=== PATIENT | female | born 1950 | race Hispanic/Latino ===

== ENCOUNTER 2017-04-20 14:07 | Emergency (ER) | payer MEDICARE ==
[2017-04-20 14:07] VITALS: BMI 28.5
[2017-04-20 14:20] VITALS: BP 93/60; PULSE 84; RESP 18; TEMP 98.5; O2SAT 99
--- NOTE | 2017-04-20 15:05 | ED PDOC ---
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 She denies dysuria, hematuria, urgency, pollakiuria, fever, cough, SOB, chest pain, palpitation. PMD: Dr Escalante Health Director: Dr Karen Moreira <Lazarus Salcedo - Last Filed: 04/20/17 18:49> <Eddi Rowe - Last Filed: 04/20/17 19:01> Time Seen by Provider: 04/20/17 14:35 Chief Complaint (Nursing): Female Genitourinary Supervising Attending Note - Supervising Attending Note The Documented history was done by the: Physician [employer] Consultant The documented physical exam was done by the: Physician [employer] Consultant The documented procedures were done by the: Physician [employer] Consultant - Attestation: I have personally seen and examined this patient.: Yes I have fully participated in the care of the patient.: Yes I have reviewed all pertinent clinical information, including history, physical exam and plan: Yes - Notes: Notes:: L flank pain <Eddi Rowe - Last Filed: 04/20/17 19:01> Past Medical History Reviewed: Nursing Documentation, Vital Signs Vital Signs: Last Vital Signs Temp 98.5 F 04/20/17 14:15 Pulse 84 04/20/17 14:15 Resp 18 04/20/17 14:15 BP 93/60 L 04/20/17 14:15 Pulse Ox 99 04/20/17 14:15 - Medical History PMH: Anxiety, Arthritis, Asthma, HTN, Hypercholesterolemia, Kidney Stones (2012) , Migraine, Seizures (1981) Denies: Anemia - Surgical History Surgical History: Appendectomy Other surgeries: -Hysterectomy. -Right mastectomy s/p R breast Ca 10 years ago. -Renal stent - Family History Family History: States: No Known Family Hx - Social History Current smoker - smoking cessation education provided: Yes Alcohol: None Drugs: Denies <Lazarus Salcedo - Last Filed: 04/20/17 18:49> Vital Signs: Last Vital Signs Temp 98.5 F 04/20/17 14:15 Pulse 84 04/20/17 14:15 Resp 18 04/20/17 14:15 BP 93/60 L 04/20/17 14:15 Pulse Ox 99 04/20/17 18:49 <Eddi Rowe - Last Filed: 04/20/17 19:01> - Home Medications Home Medications: Ambulatory Orders Medication Instructions Recorded Letrozole [Femara] 2.5 mg PO DAILY 07/04/14 QUEtiapine [SEROquel XR] 50 mg PO HS 07/04/14 Sertraline HCl [Zoloft] 50 mg PO BID 07/04/14 Zolpidem Tartrate [Ambien] 10 mg PO HS PRN 07/04/14 Cholecalciferol (Vitamin D3) 4,000 iu PO DAILY 05/15/15 [Vitamin D] Potassium Chloride [K-Tab ER] 40 meq PO DAILY 11/27/15 Prochlorperazine [Compazine] 10 mg PO PRN PRN 11/27/15 Budesonide/Formoterol Fumarate 2 aer IH DAILY 12/13/16 [Symbicort] Losartan [Cozaar] 25 mg PO DAILY 12/13/16 Rosuvastatin Calcium [Crestor] 10 mg PO DAILY 12/13/16 - Allergies Allergies/Adverse Reactions: Allergies Allergy/AdvReac Type Severity Reaction Status Date / Time No Known Allergies Allergy Verified 03/07/17 09:28 Review of Systems ROS Statement: Except As Marked, All Systems Reviewed And Found Negative Gastrointestinal: Positive for: Vomiting Musculoskeletal: Positive for: Back Pain <Lazarus Salcedo - Last Filed: 04/20/17 18:49> Physical Exam - Physical Exam Appears: Positive for: Well, No Acute Distress Head Exam: Positive for: ATRAUMATIC, NORMOCEPHALIC Skin: Positive for: Normal Color Eye Exam: Positive for: Normal appearance Neck: Positive for: Normal, Supple Cardiovascular/Chest: Positive for: Regular Rate, Rhythm. Negative for: Chest Non Tender Respiratory: Positive for: Normal Breath Sounds. Negative for: Crackles, Rales , Rhonchi, Stridor Gastrointestinal/Abdominal: Positive for: Soft. Negative for: Tenderness, Distended, Guarding, Rebound Back: Positive for: Normal Inspection, L CVA Tenderness Extremity: Positive for: Normal ROM. Negative for: Pedal Edema Neurologic/Psych: Positive for: Alert, Oriented <Lazarus Salcedo - Last Filed: 04/20/17 18:49> - Physical Exam Cardiovascular/Chest: Positive for: Regular Rate, Rhythm Respiratory: Positive for: Normal Breath Sounds Back: Positive for: L CVA Tenderness <Eddi Rowe Ricardo - Last Filed: 04/20/17 19:01> - Laboratory Results Result Diagrams: 04/20/17 16:44 04/20/17 15:47 - ECG O2 Sat by Pulse Oximetry: 99 <SamaraLazarus bolton - Last Filed: 04/20/17 18:49> - Laboratory Results Result Diagrams: 04/20/17 16:44 04/20/17 15:47 Interpretation Of Abn Labs: 28 bun - ECG Pulse Ox Interpretation: Normal - CT Scan/US ct Other Rad Studies (CT/US): Read By Radiologist Other Rad Interpretation: no acute - Progress ED Course And Treament: 1859: Stable. AAOx3. Pain free. Tolerated PO. Fu with pcp. Has chronic renal issues. <Eddi Rowe - Last Filed: 04/20/17 19:01> Medical Decision Making Medical Decision Makin:20 Impression Lumbar pain secondary to nephrolithiasis vs Lumbago Differential Lumbar seth strain, , sciatalgia, lumbar spine met, Pyelonephritis Plan CBC, CMP, urine dip , EKG CT Abd/pelvis w/o IV contrast IF fluids NS 1 L, zofran 4 mg IV Revaluation Labs reviewed: CBC: normal CMP:Bun/cr 28/1.1 GFR: 50 Ca: 10.5 urine dip: normal EKG: NSR with sinus arrhythmia CT Abd/Pelvis: 6 mm calculus go imbedded in the cortex of the right kidney. no evidence of obstructive uropathy or other acute/significant pathologic process. Left Kidney: No lithiasis, no hydronephrosis, no hydroureter Bones: no acute fracture. Spondylolysis w/o evidence of spondylolisthesis lumbosacral junction. Healed posterior lateral right 12 rib fracture. Impression Hypercalcemia may be secondary to hyperparathyroidism CKD Nephrolithiasis right kidney Lumbago <Lazarus Salcedo - Last Filed: 04/20/17 18:49> Disposition - Disposition Disposition Time: 18:45 <Lazarus Salcedo - Last Filed: 04/20/17 18:49> - Patient ED Disposition Is Patient to be Admitted: No Counseled Patient/Family Regarding: Studies Performed, Diagnosis, Need For Followup, Rx Given - Disposition Disposition: Routine/Home <Eddi Rowe - Last Filed: 04/20/17 19:01> - Clinical Impression Clinical Impression: Nephrolithiasis, Back pain - Disposition Referrals: [facility] [place] [Outside] - 04/21/17 Condition: STABLE Additional Instructions: Return if not better in 3 days. Instructions: Low Back Pain in Adults, Kidney Stones (DC) Forms: [employer]ud[employer] ([place])
[2017-04-20] MEDS ORDERED: Sodium Chloride 0.9% 1,000 ML IV STA (15:24)
[2017-04-20 16:06] LABS: ALB/GLOB RATIO 1.2 (1.0-2.1); ALBUMIN 4.2 g/dL (3.5-5.0); ALT/SGPT 20 U/L (9-52); AST/SGOT 23 U/L (14-36); BLOOD UREA NITROGEN 28 mg/dl (7-17); CALCIUM 10.5 mg/dL (8.4-10.2); GFR AFRICAN-AMERICAN > 60; GFR NON-AFRICAN AMERICAN 50
[2017-04-20 16:47] LABS: HEMOGLOBIN 13.6 g/dL (12.0-16.0); MEAN CELL VOLUME 88.9 fl (81.0-99.0); MEAN CORPUSCULAR HEMOGLOBIN 29.9 pg (27.0-31.0); MEAN CORPUSCULAR HGB CONC 33.6 g/dL (33.0-37.0); RBC 4.56 Mil/uL (3.80-5.20); RED CELL DISTRIBUTION WIDTH 13.5 % (11.5-14.5); WHITE BLOOD COUNT 6.7 K/uL (4.8-10.8)
--- NOTE | 2017-04-20 17:19 | CT ---
PROCEDURE: CT Abdomen and Pelvis without intravenous contrast HISTORY: Back pain; R/O stone COMPARISON: None. TECHNIQUE: Unenhanced study. Neither oral nor intravenous contrast administered. Radiation dose: Total exam DLP = 914.34 mGy-cm. This CT exam was performed using one or more of the following dose reduction techniques: Automated exposure control, adjustment of the mA and/or kV according to patient size, and/or use of iterative reconstruction technique. FINDINGS: LOWER THORAX: Unremarkable. LIVER: Unremarkable. No gross lesion or ductal dilatation. GALLBLADDER AND BILE DUCTS: Unremarkable. PANCREAS: Unremarkable. No gross lesion or ductal dilatation. SPLEEN: Unremarkable. ADRENALS: Unremarkable. No mass. KIDNEYS AND URETERS: Right kidney: Peripheral, cortical calculus 6 x 5 mm midpole region right kidney. No evidence to suggest right hydroureter, hydronephrosis. Left kidney: Unremarkable. No evidence of calculus disease or other pathologic process. . No evidence to suggest left hydroureter hydronephrosis. VASCULATURE: Unremarkable. No aortic aneurysm. BOWEL: Unremarkable. No obstruction. No gross mural thickening. APPENDIX: Unremarkable. Normal appendix. PERITONEUM: Unremarkable. No free fluid. No free air. LYMPH NODES: Unremarkable. No enlarged lymph nodes. BLADDER: Unremarkable. REPRODUCTIVE: Prior hysterectomy. BONES: No acute fracture. Spondylolysis without evidence of spondylolisthesis lumbosacral junction. Healed posterior lateral right 12th rib fracture. OTHER FINDINGS: None. IMPRESSION: 6 mm calculus go imbedded in the cortex of the right kidney. No evidence of obstructive uropathy or other acute/significant pathologic process. Additional benign and/or incidental findings described above.
--- NOTE | 2017-04-21 13:37 | CARD ---
APPROVED REPORT EKG Measurement Heart [id number] [id number] <Conclusion> Normal sinus rhythm with sinus arrhythmia V1 has repolarisation abnormality Please repeat EKG Normal ECG
== END 2017-04-20 19:28 | disposition home or self-care (01) ==
LOC: H.ER 14:07
DX: N20.0 Calculus of kidney (principal); Z85.3 Personal history of malignant neoplasm of breast; I12.9 Hypertensive chronic kidney disease with stage 1 through stage 4 chronic kidney disease, or unspecified chronic kidney disease; E78.00 Pure hypercholesterolemia, unspecified
CPT/HCPCS: 74176; 80053; 85027; 93005; 96374; 99284; J2405; J7040

== ENCOUNTER 2018-01-08 10:04 | Day surgery (SDC) | payer MEDICARE ==
[2017-12-28 12:01] VITALS: BMI 27.3
--- NOTE | 2018-01-08 10:58 | CP.SDSHP ---
Same Day Surgery H & P - History Proposed Procedure: chemoport removal Pre-Op Diagnosis: Breast CA completed w chemo - Previous Medical/Surgical History Cardiac: Hypertension Endocrine/Metabolic: Renal Disease Neuro: Seizure Disorder Pain: 0. No Pain - Allergies Allergies: Allergies No Known Allergies Allergy (Verified 03/07/17 09:28) - Physical Exam General Appearance: NAD Mental Status: Alert & Oriented x3 Neuro: WNL Heart: WNL Lungs: WNL GI: WNL - {Optional Preform as Required} Breast: Other (R chest has chemoport 2h3e2io. No erythema . NT) Abdomen: WNL Integument: WNL - Impression Pt. Evaluated Today:Candidate for Anesthesia & Procedure: Yes - Date & Time Date: 01/08/18 Time: 10:57 Short Stay Discharge - Short Stay Discharge Admitting Diagnosis/Reason for Visit: C50.9 Disposition: HOME/ ROUTINE Follow-up: follow up at Dr. Prater's office in 1-2 weeks. Additional Instructions (Diet, Activity): OK to shower in 2 days. Keep steri strips (white strips ) on. Take dressing off when shower.
[2018-01-08 11:05] VITALS: RESP 18
[2018-01-08] MEDS ORDERED: Bupivacaine 0.5% Inj(30mL) INFIL ONE (12:27)
[2018-01-08] MEDS ORDERED: Lactated Ringer's 1,000 ML IV ONE (12:27)
--- NOTE | 2018-01-08 13:16 | PCM.SURG1 ---
Surgeon's Initial Post Op Note - Surgeon's Notes Surgeon: Dr. Prater Inventory Assistant: Nato Eden Type of Anesthesia: General LMA, Local Anesthesia Administered By: Isaias Pre-Operative Diagnosis: Breast CA needing chemo: completed Operative Findings: Adhesions to the catheter. Post-Operative Diagnosis: SAme Operation Performed: removal of chemoport Specimen/Specimens Removed: chemoport Estimated Blood Loss: EBL {In ML}: 5 Blood Products Given: N/A Drains Used: No Drains Post-Op Condition: Good Date of Surgery/Procedure: 01/08/18 Time of Surgery/Procedure: 13:16
--- NOTE | 2018-01-08 13:25 | PCM.OP ---
Operative Report - Operative Report Date of Surgery/Procedure: 01/08/18 Time of Surgery/Procedure: 13:17 Surgeon: Dr. Prater Manager Pipeline: aNto Eden Anesthesia/Sedation: Dr. Hannon, General LMA Pre-Operative Diagnosis: Breast CA needing chemotherapy: completed Post-Operative Diagnosis: Breast CA needing chemotherapy: completed Indication for Surgery: Breast CA needing chemotherapy: completed Operative Findings: Adhesion to the catheter. Procedure/Operation Description: After the induction of general anesthetic via LMA, the chemoport site was prepped and draped in usual manner. 0.5% marcaine 10cc was injected along the old incision and under the port. The previous incision was opened by incising the old scar. The port pocket was then opened and the port was removed from the pocket. There was a resistance to the catheter being removed and so therefore, we began following the catheter along its path opening the tract until finally the catheter seemed to come free and could be pulled out. The port pocket was then closed using a #4-0 Monocryl in subcutaneous tissue and subcuticular stitch for the skin. Steri strips were applied along the incision and sterile dressing was applied. Estimated Blood Loss: 5 Blood Replaced: None Sponge/Instrument Count: Correct Drains: None Complications: None Specimen: Chemo port and catheter Discharge & Condition: Patient was awakened and taken to the recovery room in satisfactory condition.
[2018-01-08 16:10] VITALS: BP 106/68; PULSE 87; TEMP 97.4; O2SAT 97
--- NOTE | 2018-01-08 19:06 | CARD ---
APPROVED REPORT Date of service: 01/08/2018 EKG Measurement Heart [id number] [id number] <Conclusion> Normal sinus rhythm Normal ECG
--- NOTE | 2018-01-08 23:33 | OP ---
PROCEDURE DATE: 01/08/2018 TIME OF SURGERY: 1 o'clock. SURGEON: Kimberly Prater MD. ULTRASONIC TESTER: Nato Eden DO. ANESTHESIOLOGIST: Emily Hannon MD. TYPE OF ANESTHESIA: General LMA. PREOPERATIVE DIAGNOSIS: Breast cancer, needing chemotherapy, completed. INDICATION FOR SURGERY: Breast cancer, needing chemotherapy, completed. OPERATIVE FINDINGS: There were some adhesions to the catheter. DESCRIPTION OF PROCEDURE: After the induction of general anesthetic via LMA, the chemo port site was prepped and draped in the usual manner. 0.5 % Marcaine 10 cc was injected along the old incision and under the port. The previous incision was opened by incising the old scar. The chemo port pocket was then opened and the port was removed from the pocket. There was a resistance with the catheter being removed, and so therefore we began following the catheter along the scar, opening the tract until finally catheter seemed to come free and could be pulled out. The port pocket was then closed using 4-0 Monocryl in subcutaneous tissue and subcuticular stitch was applied for the skin. The Steri-Strips were applied along the incision and sterile dressing was applied. Estimated blood loss was 5 mL and no blood was given. Sponge and instrument counts were correct. No drains. No complications. SPECIMENS: Chemo port and the catheter. The patient was awakened and taken to the recovery room in satisfactory condition. Nato Eden DO Kimberly Prater MD
== END 2018-01-08 14:55 | disposition home or self-care (01) ==
LOC: H.OPSURG 10:04
PROVIDERS: ATTEND Specialist
DX: C50.919 Malignant neoplasm of unspecified site of unspecified female breast (principal); J45.909 Unspecified asthma, uncomplicated; J44.9 Chronic obstructive pulmonary disease, unspecified; E78.5 Hyperlipidemia, unspecified; I10 Essential (primary) hypertension; G40.909 Epilepsy, unspecified, not intractable, without status epilepticus
CPT/HCPCS: 36590; 88304; 93005; J0690; J7030; J7120